=== PATIENT | female | born 1960 | race American Indian/Alaskan Native ===

== ENCOUNTER 2017-12-05 15:42 | Emergency (ER) | payer BC, OTHER ==
[2017-12-05 17:26] LABS: Bacteria,Urine 2+ /HPF (Negative); Bilirubin,Urine NEG (Negative); Blood,Urine SM (Negative); Color,Urine Amber (Yellow); Hyaline Casts,Urine 5 /LPF; Mucus,Urine 2+ /HPF; Nitrite,Urine NEG (Negative)
[2017-12-05 17:34] LABS: Hematocrit 45.2 % (30.3-42.9); Mean Corpuscular HGB Conc 33 % (30-34); Mean Corpuscular Hemoglobin 29 pg (28-32); Mean Corpuscular Volume 86 fl (79-97); Platelet Count 101 K/mm3 (140-440); Red Blood Count 5.24 M/mm3 (3.65-5.03)
[2017-12-05 18:00] LABS: Albumin 4.3 g/dL (3.9-5); BUN/Creatinine Ratio 20; Blood Urea Nitrogen 18 mg/dL (7-17); Calcium 8.6 mg/dL (8.4-10.2); Hemolysis Index 8
[2017-12-05 18:01] LABS: Alanine Aminotransferase < 5 units/L (7-56)
[2017-12-05 18:57] LABS: Basophils % (Manual) 0 % (0.0-1.8); Eosinophils % (Manual) 0 % (0.0-4.3); Total Cells Counted 100
[2017-12-05 18:58] LABS: Platelet Estimate Appears Decreased
[2017-12-05 18:59] LABS: Anisocytosis 1+
[2017-12-05 22:41] VITALS: BP 173/87
== END 2017-12-06 06:35 | disposition left against medical advice (07) ==
LOC: ED 15:42
DX: J11.1 Influenza due to unidentified influenza virus with other respiratory manifestations (principal); Z53.21 Procedure and treatment not carried out due to patient leaving prior to being seen by health care provider
CPT/HCPCS: 36415; 80053; 81001; 85007; 85025